=== PATIENT | male | born 1945 | race Caucasian/White ===

== ENCOUNTER 2022-05-13 09:35 | Emergency (ER) | payer MEDICARE ==
[~2022-05-13] VITALS: Ht 185.4 cm; Wt 104.3 kg
[2022-05-13] MEDS ORDERED: LIPITOR80 MG PO (10:46)
[2022-05-13] MEDS ORDERED: LANOXIN PO (10:46)
[2022-05-13] MEDS ORDERED: ELIQUIS2.5 M1 PO (10:47)
[2022-05-13] MEDS ORDERED: METOPROLOL TART50 M9 PO (10:47)
[2022-05-13] MEDS ORDERED: CLIN150 PO (10:52)
[2022-07-15] MEDS ORDERED: MACROBID 100 M100 MG PO (20:07)
[2022-07-23] MEDS ORDERED: ELIQUIS5 M2 PO (16:51)
[2022-07-23] MEDS ORDERED: HUMALOG KW100 UNIT/1 SC (16:57)
[2022-07-23] MEDS ORDERED: BASAGLAR K100 UNIT/6 SC (16:59)
[2022-07-23] MEDS ORDERED: METO25ER PO (17:01)
[2022-07-23] MEDS ORDERED: TAMS.4ER PO (17:02)
== END 2022-05-13 11:22 | disposition home or self-care (01) ==
LOC: ER 09:35
DX: L03.317 Cellulitis of buttock (principal); L02.31 Cutaneous abscess of buttock; L89.151 Pressure ulcer of sacral region, stage 1
CPT/HCPCS: 10060; 99282-25

== ENCOUNTER 2022-08-11 03:52 | Inpatient (IN) | payer MEDICARE ==
[~2022-08-11] VITALS: Ht 185.4 cm; Wt 103.8 kg
[~2022-08-11 03:52] MED LIST: BASAGLAR K100 UNIT/6 SC; CLIN150 PO; ELIQUIS2.5 M1 PO; ELIQUIS5 M2 PO; HUMALOG KW100 UNIT/1 SC; LANOXIN PO; LIPITOR80 MG PO; MACROBID 100 M100 MG PO; METO100 PO; METOPROLOL TART50 M9 PO; TAMS.4ER PO
[2022-08-11 04:55] LABS: BASOPHILS ABSOLUTE AUTO 0.03 K/mm3 (0.00-0.23); BASOPHILS PERCENT AUTO 0 % (0-2); EOSINOPHILS PERCENT AUTO 1 % (0-6); Hematocrit 42.3 % (37.0-53.0); Hemoglobin 13.7 g/dL (13.5-17.5); IMMATURE GRAN ABSOLUTE AUTO 0.09 K/mm3 (0.00-0.10); IMMATURE GRAN PERCENT AUTO 1 % (0-1); LYMPHOCYTES ABSOLUTE AUTO 0.76 K/mm3 (0.84-5.20); LYMPHOCYTES PERCENT AUTO 6 % (21-46); MONOCYTES ABSOLUTE AUTO 0.66 K/mm3 (0.16-1.47); MONOCYTES PERCENT AUTO 5 % (4-13); Mean Corpuscular HGB Conc 32.4 g/dL (31.5-36.5); Mean Corpuscular Volume 86 fL (80-100); Mean Platelet Volume 10.9 fL (9.1-12.4); NEUTROPHILS ABSOLUTE AUTO 11.15 K/mm3 (1.96-9.15); NEUTROPHILS PERCENT AUTO 87 % (41-73); Platelet Count 304 K/mm3 (150-400); RDW Coefficient Variation 13.1 % (11.7-14.2); RDW Standard Deviation 41.3 fL (35.1-46.3); White Blood Cell Count 12.79 K/mm3 (4.00-11.30)
[2022-08-11 05:14] LABS: Albumin, Blood 2.3 g/dL (3.4-5.0); Albumin/Globulin Ratio 0.5 (0.8-1.8); Bilirubin, Total 1.6 mg/dL (0.1-1.0); Bun/Creatinine Ratio 21.6 (12.0-20.0); Calcium, Blood 8.7 mg/dL (8.5-10.1); Creatinine, Blood 1.02 mg/dL (0.60-1.20); Globulin, Blood 4.6 g/dL (2.2-4.0); Magnesium, Blood 1.2 mg/dL (1.6-2.4); Potassium, Blood 3.6 mmol/L (3.5-5.5); Total Protein, Blood 6.9 g/dL (6.4-8.2)
[2022-08-11] MEDS ORDERED: TRESIBA FL100 UNIT/2 SC (07:45)
[2022-08-11 10:33] LABS: Source, Urine Clean Catch
[2022-08-11 10:42] LABS: Bilirubin, Urine Neg (Neg); Blood, Urine 3+ (Neg); Color, Urine Yellow (P-Yellow); Glucose Qualitative, Urine Neg (Neg); Ketones, Urine Neg (Neg); Leukocyte Esterase, Urine 3+ (Neg); Nitrite, Urine Neg (Neg); Protein, Urine 2+ (Neg); Urobilinogen, Urine NORM (Normal); pH, Urine 6.5 (5.0-8.0)
[2022-08-11 10:46] LABS: Appearance, Urine Hazy (Clear)
[2022-08-11 10:54] LABS: Squamous Epithelial Cells Rare /hpf (Few); White Blood Cells, Urine TNTC /hpf (0-5)
[2022-08-11 10:55] LABS: Bacteria Many /hpf
--- NOTE | 2022-08-11 11:43 | NUR ---
Pt resting in bed upon arrival. Pt appears mildly agitated reporting frustraation with lines and cords. Pt A&OX3/4 but admits struggling with his memory. He expresses frustration with some of his medications being D/C by his PCP and does'nt know why. Continued active listening and validated concerns. Discussed wishes for code status with Pt reporting wishes are DNR. Pt confirms POLST on file remains aligned with current wishes. Called and spoke with Pt's spouse and provided update. Spouse Matilda also confirms Pt's wishes for DNR. Spoke with Dr Urias and discussed case. Placed DNR order in [facility] for Pt per V/O from Dr Urias. Palliative Care will remain available.
[2022-08-11 13:17] LABS: CPK Creatine Kinase 46 U/L (39-308)
--- NOTE | 2022-08-11 17:36 | NUR ---
Admission note Received report from chon Roberts in ed. Pt to room via jaspal townsend transfer to bed with cane. Pt oriented to room and call light. Pt educated on bed alarm. Pt states sob started in the last couple of days. Spo2 >90% on 2l o2 via nc, titrated t/o to room air, ls clear t/o dim bases, breathing even and unlabored at rest, when pt talking or moving resp rate increase and breathing becomes labored. Pt reports productive cough, states it is worse early in morning. Pt receiving IV lasix. Tele afib, this am pt 120-150, touching 170-190, medicated x2 with lopressor iv, new order entered for lopressor po first dose now. Bp stable, diastolic occasionally elevated, notified MD. Abd mild distention, soft, nontender. Increase urine output, cloudy, pt reports recent uti, notified MD new order for ua, pending culture. Nonblancable redness noted to coccyx, picture in chart, mepilex in place, pt moving self in bed, educated pt to move side to side q2. Pt denies pain, chest pain/pressure, nausea, and dizziness. Pt reports baseline neuropathy to ble. Vss. No other acute changes noted. Will continue to monitor unitl report given to oncoming RN.
[2022-08-11 21:01] LABS: CPK Creatine Kinase 31 U/L (39-308)
[2022-08-12 04:02] LABS: BASOPHILS ABSOLUTE AUTO 0.03 K/mm3 (0.00-0.23); BASOPHILS PERCENT AUTO 0 % (0-2); EOSINOPHILS ABSOLUTE AUTO 0.17 K/mm3 (0.00-0.68); EOSINOPHILS PERCENT AUTO 2 % (0-6); Hemoglobin 13.1 g/dL (13.5-17.5); IMMATURE GRAN ABSOLUTE AUTO 0.11 K/mm3 (0.00-0.10); IMMATURE GRAN PERCENT AUTO 1 % (0-1); LYMPHOCYTES ABSOLUTE AUTO 0.83 K/mm3 (0.84-5.20); LYMPHOCYTES PERCENT AUTO 8 % (21-46); MONOCYTES PERCENT AUTO 5 % (4-13); Mean Corpuscular HGB 28.4 pg (26.0-34.0); Mean Corpuscular HGB Conc 32.8 g/dL (31.5-36.5); Mean Corpuscular Volume 87 fL (80-100); Mean Platelet Volume 10.6 fL (9.1-12.4); NEUTROPHILS ABSOLUTE AUTO 8.29 K/mm3 (1.96-9.15); NEUTROPHILS PERCENT AUTO 84 % (41-73); Platelet Count 298 K/mm3 (150-400); RDW Coefficient Variation 13.2 % (11.7-14.2); RDW Standard Deviation 41.5 fL (35.1-46.3); Red Blood Cell Count 4.61 M/mm3 (4.30-5.90); White Blood Cell Count 9.93 K/mm3 (4.00-11.30)
[2022-08-12 04:27] LABS: Albumin, Blood 2.1 g/dL (3.4-5.0); Albumin/Globulin Ratio 0.5 (0.8-1.8); Bilirubin, Total 1.3 mg/dL (0.1-1.0); Bun/Creatinine Ratio 27.2 (12.0-20.0); Calcium, Blood 8.6 mg/dL (8.5-10.1); Creatinine, Blood 1.03 mg/dL (0.60-1.20); Globulin, Blood 4.4 g/dL (2.2-4.0); Potassium, Blood 3.4 mmol/L (3.5-5.5); Total Protein, Blood 6.5 g/dL (6.4-8.2)
--- NOTE | 2022-08-12 05:41 | NUR ---
REFRIGERATION MANAGER SUMMARY PT HAS BEEN INTERMITTENTLY CONFUSED THROUGHOUT THE SHIFT. ABLE TO ANSWER ORIENTATION QUESTIONS BUT GETS EVENTS/TIMELINES MIXED UP. PT HAS BEEN AFIB IN THE 90S/100S AT REST ON TELE BUT HR INCREASES TO 160S TO 180S WHEN STANDING TO USE THE URINAL. ENCOURAGED PT TO USE URINAL IN BED - HR STILL INCREASED TO 140S WITH PUSHING TO URINATE. PT FOLLOWS DIRECTIONS. IMPULSIVE WITH GETTING UP TO URINATE SO BED ALARM ON. PT REPORTED SOME SHORTNESS OF BREATH WHILE SLEEPING ON PREVIOUS NIGHTS SO PLACED ON 1L BY NC FOR COMFORT. PT UP FREQUENTLY THROUGHOUT THE NIGHT. NO COMPLAINTS OF PAIN. NO LEG SWELLING. 2000 ML FLUID RESTRICTION. PT WITH ELEVATED BLOOD SUGAR SO RESIDENT CONTACTED AND PT GIVEN HIS NORMAL 40 U LONG ACTING WITH SOME IMPROVEMENT.
--- NOTE | 2022-08-12 11:50 | NUR ---
Sitting up in chair, now for about an hour. Heart rate initially increased with work of standing, using urinal and sitting in chair. Denies any chest discomfort, dyspnea, pain. He does have slight tachypnea and mild dyspnea during the activity, but continues to carry on conversation all the while. Heart rate is down from 140-166 an hour ago to now 97-114 at rest.
--- NOTE | 2022-08-12 15:31 | NUR ---
Heart better controlled while at rest. Activity heart rate is 120s to 130, atrial fibrillation when he stands, walks to the bathroom, uses the urinal, etc. He denies any symptoms with his elevated heart rate.
--- NOTE | 2022-08-13 06:48 | NUR ---
MANAGER RADIATION SUMMARY PT AWAKE MULTIPLE TIMES THROUGHOUT THE NIGHT AND WAKES CONFUSED ABOUT WHERE HE IS. ABLE TO ANSWER ORIENTATION QUESTIONS APPROPRIATELY. TELE HAS BEEN AFIB IN THE 100S AT REST - INCREASES TO 130S/140S WITH EXERTION OF USING THE URINAL. PT DID NOT ATTEMPT TO GET OUT OF BED. HE IS PLEASANT AND COOPERATIVE. BP HAS REMAINED STABLE. PT CONTINUES TO REQUEST WATER/FLUIDS. FOLLOWING DIRECTIONS. NO ACUTE EVENTS.
[2022-08-13 07:08] LABS: BASOPHILS ABSOLUTE AUTO 0.03 K/mm3 (0.00-0.23); BASOPHILS PERCENT AUTO 0 % (0-2); EOSINOPHILS ABSOLUTE AUTO 0.18 K/mm3 (0.00-0.68); EOSINOPHILS PERCENT AUTO 2 % (0-6); Hematocrit 40.9 % (37.0-53.0); Hemoglobin 13.5 g/dL (13.5-17.5); IMMATURE GRAN ABSOLUTE AUTO 0.07 K/mm3 (0.00-0.10); IMMATURE GRAN PERCENT AUTO 1 % (0-1); LYMPHOCYTES ABSOLUTE AUTO 1.04 K/mm3 (0.84-5.20); LYMPHOCYTES PERCENT AUTO 11 % (21-46); MONOCYTES ABSOLUTE AUTO 0.55 K/mm3 (0.16-1.47); MONOCYTES PERCENT AUTO 6 % (4-13); Mean Corpuscular HGB 28.5 pg (26.0-34.0); Mean Corpuscular Volume 86 fL (80-100); Mean Platelet Volume 10.8 fL (9.1-12.4); NEUTROPHILS ABSOLUTE AUTO 7.53 K/mm3 (1.96-9.15); NEUTROPHILS PERCENT AUTO 80 % (41-73); Platelet Count 292 K/mm3 (150-400); RDW Coefficient Variation 13.1 % (11.7-14.2); RDW Standard Deviation 41.3 fL (35.1-46.3); Red Blood Cell Count 4.74 M/mm3 (4.30-5.90)
[2022-08-13 07:32] LABS: Bun/Creatinine Ratio 25.8 (12.0-20.0); Calcium, Blood 8.7 mg/dL (8.5-10.1); Creatinine, Blood 1.2 mg/dL (0.60-1.20); Magnesium, Blood 1.5 mg/dL (1.6-2.4); Potassium, Blood 3.6 mmol/L (3.5-5.5)
--- NOTE | 2022-08-13 08:55 | NUR ---
Dr. Urias rounded on the pt. Discussion about plan of care with the patient. New orders received. Waiting on Mg IVPB to administer.
--- NOTE | 2022-08-13 11:31 | NUR ---
Attempt to educate the pt regarding his medications for diabetes and heart failure. is at the bedside. Pt is very argumentative, and giving contradictory information. He is upset because his medications were changed at the last discharge, and he blames this for his present admission. seems to understand about his medications and management of diabetes, but the pt has some confusion and it is contributing to his difficulty in understanding management at home with his medications.
--- NOTE | 2022-08-13 12:51 | NUR ---
ambulatory to the bathroom to void. Heart rate 93-101 during the activity.
--- NOTE | 2022-08-13 14:04 | NUR ---
Pt is frustrated with fluid restriction. Attempts to explain medications, heart failure management are met with arguments and illogical reasoning. He has a lot of forgetfulness as well.
--- NOTE | 2022-08-13 18:10 | NUR ---
Pt is increasingly confused this evening. Asks if he is going to stay here in this room instead of going back to his own room. I reminded him that this is his room. He states that he "gets a little turned around" sometimes. Sitting in a chair, chair alarm on.
--- NOTE | 2022-08-14 06:00 | NUR ---
SHIFT SUMMARY: PT ORIENTED TO SELF ONLY, FORGETFUL, ABLE TO REORIENT. NEEDS FREQUET REMINDERS OF WHERE HE IS AND WHY HE IS HERE. PT STANDING AT BEDSIDE WITH UNSTEADY GAIT TO VOID CLEAR, YELLOW URINE. PT HR REMAINS IN A-FIB IN THE 80'S WITH OCCASIONAL INCREASES TO 120 WHEN STANDING. DENIES ANY SOB OR CHEST PAIN. O2 MAINTAINED > 92% ON RA. NO ACUTE CHANGES OVERNIGHT.
[2022-08-14 10:09] LABS: Bun/Creatinine Ratio 25.4 (12.0-20.0); Calcium, Blood 8.7 mg/dL (8.5-10.1); Creatinine, Blood 1.22 mg/dL (0.60-1.20); Magnesium, Blood 1.8 mg/dL (1.6-2.4); Potassium, Blood 3.7 mmol/L (3.5-5.5)
--- NOTE | 2022-08-14 11:46 | NUR ---
Pt ambulated in the hallway, loop around PCU with cane. He did get dyspnea, RR up from 18 to 24 and shortness of breath. He was still able to carry on some coversation. Heart rate 89-114 during the walk. B/P was 104/89 while standing. Denies any other symptoms while walking. Now sitting up in chair, eating lunch.
--- NOTE | 2022-08-14 14:40 | NUR ---
Assisted with cords/wires to get back in bed. Bed alarm on . Pt does not remember to call for assistance, often attempts OOB/ OOC and does not remember his limitations. Also usually wakes up from naps disoriented.
--- NOTE | 2022-08-14 15:25 | NUR ---
Set bed alarm off after awakening and attempting OOB independently. Disoriented, said he needs to pee. Easily redirectable and assisted to bathroom to void in urinal.
--- NOTE | 2022-08-14 16:54 | NUR ---
Pt sitting up in chair, chair alarm is on. Given insulin per correction scale orders. Pt has no c/o at this time. Requesting ice water, which was given to him.
--- NOTE | 2022-08-15 05:24 | NUR ---
PT ALERT AND ORIENTED X3 THIS SHIFT. ABLE FOLLOW COMMANDS, MAKE NEEDS KNOWN, AND TELL ME WHERE HE IS, PLEASANTLY CONFUSED AT TIMES. BP AND HR STABLE, AFEBRILE, SATING >96% ON RA. PT UP TO VOID MUTIPLE TIMES THIS SHIFT. NO BM. PT HAD NO COMPLAINTS OF SOB OR CP THIS EVENING. PT CURRENTLY SITTING UP IN BED, SLEEPING. WILL REPORT TO ONCOMING RN.
[2022-08-15 07:39] LABS: BASOPHILS ABSOLUTE AUTO 0.04 K/mm3 (0.00-0.23); BASOPHILS PERCENT AUTO 0 % (0-2); EOSINOPHILS ABSOLUTE AUTO 0.13 K/mm3 (0.00-0.68); EOSINOPHILS PERCENT AUTO 1 % (0-6); Hematocrit 39.8 % (37.0-53.0); Hemoglobin 13.2 g/dL (13.5-17.5); IMMATURE GRAN ABSOLUTE AUTO 0.06 K/mm3 (0.00-0.10); IMMATURE GRAN PERCENT AUTO 1 % (0-1); LYMPHOCYTES ABSOLUTE AUTO 1.03 K/mm3 (0.84-5.20); LYMPHOCYTES PERCENT AUTO 10 % (21-46); MONOCYTES ABSOLUTE AUTO 0.55 K/mm3 (0.16-1.47); MONOCYTES PERCENT AUTO 5 % (4-13); Mean Corpuscular HGB 28.6 pg (26.0-34.0); Mean Corpuscular HGB Conc 33.2 g/dL (31.5-36.5); Mean Corpuscular Volume 86 fL (80-100); Mean Platelet Volume 10.5 fL (9.1-12.4); NEUTROPHILS PERCENT AUTO 83 % (41-73); Platelet Count 307 K/mm3 (150-400); RDW Coefficient Variation 13.2 % (11.7-14.2); RDW Standard Deviation 41.1 fL (35.1-46.3); Red Blood Cell Count 4.61 M/mm3 (4.30-5.90); White Blood Cell Count 10.81 K/mm3 (4.00-11.30)
[2022-08-15 08:08] LABS: Bun/Creatinine Ratio 25.8 (12.0-20.0); Calcium, Blood 8.9 mg/dL (8.5-10.1); Creatinine, Blood 1.28 mg/dL (0.60-1.20); Potassium, Blood 3.6 mmol/L (3.5-5.5)
[2022-08-15] MEDS ORDERED: FURO40 PO (12:26)
[2022-08-15] MEDS ORDERED: DILT120 PO (12:27)
== END 2022-08-15 15:12 | disposition home or self-care (01) | DRG 291 ==
LOC: ER 03:52 → PCU 06:18
PROVIDERS: Internal Medicine; Student in an Organized Health Care Education/Training Program; ADMIT Internal Medicine
DX: I11.0 Hypertensive heart disease with heart failure (principal); I50.33 Acute on chronic diastolic (congestive) heart failure; J96.01 Acute respiratory failure with hypoxia; I48.21 Permanent atrial fibrillation; Z66 Do not resuscitate; E11.9 Type 2 diabetes mellitus without complications; E87.6 Hypokalemia; E83.42 Hypomagnesemia; E78.5 Hyperlipidemia, unspecified; Z86.73 Personal history of transient ischemic attack (TIA), and cerebral infarction without residual deficits; Z85.51 Personal history of malignant neoplasm of bladder; Z91.013 Allergy to seafood; Z79.01 Long term (current) use of anticoagulants; Z79.899 Other long term (current) drug therapy
CPT/HCPCS: 36415; 71046; 80048; 80053; 81001; 82550; 82947; 83735; 83880; 84484; 85025; 87077; 87086; 87186; 93005; 93010; 94760; 94761; 96365; 96375; 97110; 97116; 97162; 97165; 97530; 99285-25; A9270; J1815; J1940; J3475; J3480; J7050

== ENCOUNTER → 2022-09-17 | Outpatient (CLI) | payer MEDICARE ==
[~2022-09-17] MED LIST changes: +DIGOX250 MC1 PO; +DILT120 PO; +FURO40 PO; +METO25ER PO; +POTA10T PO; +TRESIBA FL100 UNIT/2 SC
[2022-09-17 14:42] LABS: Source, Urine Clean Catch
[2022-09-17 14:48] LABS: Appearance, Urine Turbid (Clear); Bilirubin, Urine Neg (Neg); Blood, Urine 5+ (Neg); Color, Urine Yellow (P-Yellow); Glucose Qualitative, Urine 4+ (Neg); Ketones, Urine Neg (Neg); Leukocyte Esterase, Urine 3+ (Neg); Nitrite, Urine Neg (Neg); Protein, Urine 2+ (Neg); Urobilinogen, Urine NORM (Normal)
[2022-09-17 15:25] LABS: Bacteria Many /hpf; Hyaline Casts 0-2 /lpf (0-2); Red Blood Cells, Urine TNTC /hpf (0-2); Squamous Epithelial Cells Rare /hpf (Few); White Blood Cells, Urine TNTC /hpf (0-5)
[2022-09-17 18:10] LABS: Creatinine, Urine Random 38.4 mg/dL (27.00-270.00)
[2022-09-17 18:12] LABS: Microalb/Creat Ratio UR, Rand 196.354 mg/g (0.000-30.000); Microalbumin, Random Urine 75.4 mg/L (0.000-20.000)
== END | disposition home or self-care (01) ==
LOC: LAB SHORT 14:39
PROVIDERS: Internal Medicine Endocrinology, Diabetes & Metabolism
DX: N17.9 Acute kidney failure, unspecified (principal)
CPT/HCPCS: 81001; 82043; 82570

== ENCOUNTER 2022-10-19 09:01 | Day surgery (SDC) | payer MEDICARE ==
[~2022-10-19] VITALS: Ht 205.7 cm; Wt 105.0 kg
[2022-10-19] MEDS ORDERED: NOVOLIN R100 UNIT/2 SQ (09:28)
--- NOTE | 2022-10-19 11:13 | NUR ---
PT GIVEN WARM BLANKET PER REQUEST. PT SITTING UP IN BED. AT BEDSIDE W/ PT.
--- NOTE | 2022-10-19 11:39 | NUR ---
PT USING URINAL AT BEDSIDE.
== END 2022-10-19 12:25 | disposition home or self-care (01) ==
LOC: MHTC 09:01
DX: Z46.6 Encounter for fitting and adjustment of urinary device (principal); Z93.6 Other artificial openings of urinary tract status
CPT/HCPCS: 82947; C1769; J7050

== ENCOUNTER → 2023-08-16 | Outpatient (CLI) | payer MEDICARE ==
[~2023-08-16] MED LIST changes: +NOVOLIN R100 UNIT/2 SQ
== END | disposition home or self-care (01) ==
LOC: LAB 13:23 → LAB SHORT 13:23
DX: R31.9 Hematuria, unspecified (principal)
CPT/HCPCS: 87086